=== PATIENT | male | born 1990 | race Hispanic/Latino ===

== ENCOUNTER 2023-04-19 16:04 | Emergency (ER) | payer SELFPAY ==
--- NOTE | ~2023-04-19 | XR_ITS ---
EXAMINATION: XR chest 2V DATE: 04/19/2023 16:47 INDICATION: Cough. Chest pain. TECHNIQUE: Frontal and lateral views of the chest were obtained. COMPARISON: None. FINDINGS: There is no pneumonia, pleural effusion, or pneumothorax. The heart size is normal. IMPRESSION: 1. No acute cardiopulmonary disease. Reviewed, dictated and finalized at location E. [facility] [place]
[2023-04-19 16:18] VITALS: BP 143/69; PULSE 71; RESP 16; TEMP 37; O2SAT 98
--- NOTE | 2023-04-19 16:38 | ED.GENADULT ---
HPI - General Adult General Chief complaint: Upper Respiratory Infection Stated complaint: cough, chest wall pain Time Seen by Provider: 04/19/23 16:34 Source: patient and RN notes reviewed Mode of arrival: ambulatory Limitations: no limitations History of Present Illness HPI narrative: Patient presents today complaining of one-week history of cough and right lower anterior chest wall pain. Denies shortness of breath. States 3 weeks ago he had some sore throat, congestion, rhinorrhea symptoms, but these have since resolved. Currently rates his pain 8/10 and has tried some NyQuil with little relief. No history of asthma or COPD. States he occasionally smokes. Related Data Allergies Allergy/AdvReac Type Severity Reaction Status Date / Time No Known Allergies Allergy Verified 04/19/23 16:26 Review of Systems Review of Systems: CONSTITUTIONAL: Denies body aches, fever, chills, or sweats. EYES: Denies visual changes, redness, or discharge. ENT: Denies rhinorrhea, congestion, sore throat, or otalgia. CARDIOVASCULAR: Denies chest pain, palpitations, or edema. RESPIRATORY: Denies dyspnea.+ cough, chest wall pain GASTROINTESTINAL: Denies abdominal pain, nausea, vomiting, or diarrhea. GENITOURINARY: Denies dysuria or hematuria. SKIN: Denies rash, itching, or wounds. MUSCULOSKELETAL: Denies back pain, joint pain, or myalgia. NEUROLOGIC: Denies headache, numbness, tingling, or weakness. PSYCH: Denies depression or anxiety. PMFSH Comments At time of signature, I have reviewed and agree with nursing past medical, surgical, social and family history unless otherwise noted. Please see nursing chart for further information. There is no relevant family history pertinent to the presenting complaint Exam Narrative: GENERAL: Well-appearing, well-nourished, and in no acute distress. HEAD: Normocephalic, atraumatic. EYES: EOMI. No redness or drainage. Conjunctivae normal. ENT: Mucous membranes pink and moist. Nares clear. No rhinorrhea. TMs normal bilaterally. Throat normal. Uvula midline. NECK: Normal AROM. Supple. No lymphadenopathy. CHEST: No respiratory distress. Slight crackle in right lower lobe, otherwise clear. Chest is nontender. HEART: Regular rate and rhythm. No murmur appreciated. EXTREMITIES: Normal range of motion. No edema. SKIN: Warm, dry, no rash. Capillary refill normal. Normal skin turgor. NEURO: No focal deficits. Alert and oriented x3. Gait steady. PSYCH: Normal affect. No signs of depression or anxiety. Course Course Level of Care: Express Care Visit Vital Signs Vital signs: Vital Signs Temperature 98.6 F 04/19/23 16:18 Pulse Rate 71 04/19/23 16:18 Respiratory Rate 16 04/19/23 16:18 Blood Pressure 143/69 H 04/19/23 16:18 Pulse Oximetry 98 04/19/23 16:18 Temperature 98.6 F 04/19/23 16:18 Pulse Rate 71 04/19/23 16:18 Respiratory Rate 16 04/19/23 16:18 Blood Pressure 143/69 H 04/19/23 16:18 Pulse Oximetry 98 04/19/23 16:18 Reviewed Medical Decision Making MDM Narrative Medical decision making narrative: Chest x-ray negative for pneumonia. Symptoms likely due to post infectious bronchitis. Prescription for prednisone sent to pharmacy. Anticipatory guidance given. Differential Diagnosis Differential Diagnosis: Bronchitis, pneumonia Vital Signs Vital Signs: Vital Signs Temperature 98.6 F 04/19/23 16:18 Pulse Rate 71 04/19/23 16:18 Respiratory Rate 16 04/19/23 16:18 Blood Pressure 143/69 H 04/19/23 16:18 Pulse Oximetry 98 04/19/23 16:18 Temperature 98.6 F 04/19/23 16:18 Pulse Rate 71 04/19/23 16:18 Respiratory Rate 16 04/19/23 16:18 Blood Pressure 143/69 H 04/19/23 16:18 Pulse Oximetry 98 04/19/23 16:18 Imaging Data Radiologist's impression: ITS Impressions Chest X-Ray 04/19/23 16:49 IMPRESSION: 1. No acute cardiopulmonary disease. Critical Care Time Critical Care Time C
== END 2023-04-19 17:01 | disposition home or self-care (01) ==
PROVIDERS: Emergency Provider Nurse Practitioner
DX: J40 Bronchitis, not specified as acute or chronic (principal); R07.89 Other chest pain; Z72.0 Tobacco use
CPT/HCPCS: 71046; 99203; G0463

== ENCOUNTER 2024-09-29 17:31 | Emergency (ER) | payer OTHER, SELFPAY ==
[2024-09-29 17:43] VITALS: BP 151/94; PULSE 74; RESP 16; TEMP 36.6; O2SAT 100
--- NOTE | 2024-09-29 18:06 | ED.GENADULT ---
HPI - General Adult General Chief complaint: Trauma Stated complaint: work injury Source: patient Mode of arrival: ambulatory Limitations: no limitations History of Present Illness HPI narrative: Patient presents for evaluation of a head injury. 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 He fell over the lawnmower and hit his head against the ground. The event occurred approximately 1430 today. He indicates he had a brief loss of consciousness. He is not anticoagulated. He has not vomited since the episode. He now reports a frontal and bilateral temporal headache that he rates 5/10 in severity. He feels slightly confused and states he was unable to tell his boss where he was immediately following the event. He also reports some pain in the side of his neck bilaterally and an abrasion to the right anterior pelvis. Related Data Allergies Allergy/AdvReac Type Severity Reaction Status Date / Time No Known Allergies Allergy Verified 09/29/24 17:37 Review of Systems Review of Systems: CONSTITUTIONAL: Denies fever, chills, or sweats. EYES: Denies visual changes, redness, or discharge. ENT: Denies rhinorrhea, congestion, sore throat, or otalgia. CARDIOVASCULAR: Denies chest pain, palpitations, or edema. RESPIRATORY: Denies cough or dyspnea. GASTROINTESTINAL: Denies abdominal pain, nausea, vomiting, or diarrhea. GENITOURINARY: Denies dysuria or hematuria. SKIN: reports abrasion to the right anterior pelvis. Denies rash or itching. MUSCULOSKELETAL: Reports pain in the lateral aspect of his neck bilaterally NEUROLOGIC: Reports headache and confusion. Denies numbness PSYCHIATRIC: Denies anxiety or depression. FOR[facility]LY [facility], [facility] Past Medical History Medical History No pertinent past medical history Surgical History Surgical History Surgical history unknown Family History Family History Mother Family history non-contributory Social History Social History Alcohol intake: current Alcohol use details: 1 day per week Substance use: never Living arrangements: with family Gender identity (if verbalized by the patient): Male Sexual Orientation (if Verbalized by the Patient): Straight or Heterosexual Spiritual care concerns: No Exam Narrative: GENERAL: Well-appearing, well-nourished, and in no acute distress. HEAD: Normocephalic, atraumatic. EYES: PERRLA and EOMI. ENT: Nares clear, no rhinorrhea or epistaxis. Mucous membranes moist. Oropharynx without tonsillar hypertrophy exudate or other lesions. Bilateral TMs pearly doll nonbulging NECK: Supple. No adenopathy or masses. No carotid bruits or JVD. no tenderness in the posterior aspect of the neck or in the lateral aspect of the neck CHEST: Clear to auscultation. No respiratory distress. No wheezes rales or rhonchi HEART: Regular rate and rhythm. No murmur heard. Normal peripheral pulses. ABDOMEN: Soft, nontender, nondistended, normal active bowel sounds. EXTREMITIES: Normal range of motion. No edema. SKIN: there is a superficial abrasion noted to the right anterior pelvis. Warm, dry, no rash. NEURO: No focal deficits. Alert and oriented x3. PSYCH: Normal mood and affect. Course Course Emergency Course: This is a 34-year-old male who presented for evaluation of a head injury that occurred at 2:30 p.m. today. He is neurologically intact on exam but verbalizes confusion. Based upon positive loss of consciousness was sent to the ER for further evaluation. [facility] is his facility of choice. I contacted [facility] Emergency Department and spoke with Linda Anthony, who indicates that Dr Khan will accept pt to the Dept there. Pt transported via private vehicle per family. Level of Care: Express Care Visit Vital Signs Vital signs: Vital Signs Temperature 36.6 C 09/29/24 17:43 Pulse Rate 74 09/29/24 17:43 Respiratory Rate 16 09/29/24 17:43 Blood Pressure 151/94 H 09/29/24 17:43 Pulse Oximetry 100 09/29/24 17:43 Oxygen Delivery Room Air 09/29/24 17:43 Temperature 36.6 C 09/29/24 17:43 Pulse Rate 74 09/29/24 17:43 Respiratory Rate 16 09/29/24 17:43 Blood Pressure 151/94 H 09/29/24 17:43 Pulse Oximetry 100 09/29/24 17:43 Oxygen Delivery Room Air 09/29/24 17:43 Medical Decision Making Vital Signs Vital Signs: Vital Signs Temperature 36.6 C 09/29/24 17:43 Pulse Rate 74 09/29/24 17:43 Respiratory Rate 16 09/29/24 17:43 Blood Pressure 151/94 H 09/29/24 17:43 Pulse Oximetry 100 09/29/24 17:43 Oxygen Delivery Room Air 09/29/24 17:43 Temperature 36.6 C 09/29/24 17:43 Pulse Rate 74 09/29/24 17:43 Respiratory Rate 16 09/29/24 17:43 Blood Pressure 151/94 H 09/29/24 17:43 Pulse Oximetry 100 09/29/24 17:43 Oxygen Delivery Room Air 09/29/24 17:43 Discharge Plan Discharge Clinical Impression: Head injury, Loss of consciousness, Abrasion of skin of pelvis Patient Disposition: Acute Care Hospital Condition: Stable Patient Language: Portuguese Follow-up/Referrals: PHYSICIAN,CYBER WORKFORCE DEVELOPER AND MANAGER [Primary Care Provider] - Time of Disposition: 18:06
== END 2024-09-29 18:00 | disposition short-term general hospital (02) ==
PROVIDERS: Emergency Provider Nurse Practitioner
DX: S06.9X9A Unspecified intracranial injury with loss of consciousness of unspecified duration, initial encounter (principal); S30.810A Abrasion of lower back and pelvis, initial encounter; V84.0XXA Driver of special agricultural vehicle injured in traffic accident, initial encounter; Y99.0 Civilian activity done for income or pay
CPT/HCPCS: 99212; G0463

== ENCOUNTER 2024-09-29 18:25 | Emergency (ER) | payer OTHER, SELFPAY ==
--- NOTE | ~2024-09-29 | CT_ITS ---
History: Fall PROCEDURE: CT cervical spine without intravenous contrast. COMPARISON: None TECHNIQUE: Multiple contiguous axial images of the cervical spine were performed without the administration of i ntravenous contrast. DLP: 600 mGy-cm FINDINGS: Straightening of the normal curvature of the cervical spine is identified, likely muscular in origin. No acute fractures are present. The bilateral lung apices are unremarkable. No soft tissue abnormality is appreciated. The airway is patent. Impression: Straightening of the normal curvature of the cervical spine, likely muscular in origin. No acute fracture. Reviewed, dictated and finalized at location A. Impression: Straightening of the normal curvature of the cervical spine, likely muscular in origin. No acute fracture.
--- NOTE | ~2024-09-29 | XR_ITS ---
HISTORY: pain and swelling to dorsum of hand after a fall COMPARISON: None TECHNIQUE: 3 views of the left hand were performed. FINDINGS: No acute fracture is identified. The joint spaces are preserved. The carpal arcs are intact. Mild radiocarpal joint space narrowing with sclerosis of the distal radius is present. Bone mineralization is age-appropriate. No radiopaque foreign body is identified. IMPRESSION: No acute fracture or dislocation within the left hand, as detailed above. Reviewed, dictated and finalized at location A.
--- NOTE | ~2024-09-29 | XR_ITS ---
CHEST RADIOGRAPH, PA AND LATERAL CLINICAL HISTORY: chest soreness after fall . COMPARISON: 04/19/2023 TECHNIQUE: PA and lateral views of the chest. FINDINGS The cardiomediastinal silhouette is unremarkable. The lungs are clear. IMPRESSION: No focal infiltrate or effusion. If clinical suspicion persists, cross-sectional imaging (noncontrast enhanced CT examination of the c hest) is suggested for further evaluation. Reviewed, dictated and finalized at location A. IMPRESSION: No focal infiltrate or effusion. If clinical suspicion persists, cross-sectional imaging (noncontrast enhanced C T examination of the chest) is suggested for further evaluation.
--- NOTE | ~2024-09-29 | CT_ITS ---
History: Fall PROCEDURE: CT head without contrast. COMPARISON: None TECHNIQUE: Axial imaging of the head performed from the skull base to the vertex without IV contrast. Sagittal a nd coronal reformations obtained. DLP: 681 mGy-cm FINDINGS: The ventricles are normal in size, shape and position. There is no mass, mass effect or midline shift. There is no abnormal extra-axial fluid collection or intracranial hemorrhage. Visualized paranasal sinuses are clear. The mastoid air cells are well aerated. No acute displaced fractures within the overlying cranium. Impression: No acute intracranial hemorrhage or suspicious mass effect. Reviewed, dictated and finalized at location A. Impression: No acute intracranial hemorrhage or suspicious mass effect.
[2024-09-29 18:27] VITALS: BP 137/80; PULSE 89; RESP 20; TEMP 36.7; O2SAT 98
[2024-09-29 18:51] VITALS: BP 145/87; PULSE 73; RESP 17; TEMP 36.7; O2SAT 98
[2024-09-29 18:58] VITALS: BP 145/87; PULSE 92; RESP 17; O2SAT 97
[2024-09-29 19:28] VITALS: BP 155/94; PULSE 75; RESP 18; TEMP 37.1; O2SAT 100
--- NOTE | 2024-09-29 20:21 | ED_ITS ---
HPI - Head Injury General Chief complaint: Head Injury Stated complaint: head injury, +LOC, -thinner Time Seen by Provider: 09/29/24 19:40 History of Present Illness HPI Narrative: 34-year-old male presents to the emergency department for a head injury. Patient states he was mowing the lawn numbness in a lawnmower when he hit a drain in the lawn causing him to flip over the top of the lawnmower. He states he out stretches left hand in attempt to protect his head but injured his left hand is now having pain and swelling to the dorsum of the left hand. He does not recall if the hit his head but believes he may have lost consciousness for couple of seconds. He is not on anticoagulants. He is reporting a headache, pain to the left hand and soreness to his chest wall. He is also reporting a superficial abrasion to the right hip. Last Tdap unknown. Denies other injuries. Related Data Allergies Allergy/AdvReac Type Severity Reaction Status Date / Time No Known Allergies Allergy Verified 09/29/24 18:26 Review of Systems Review of Systems: All systems reviewed & are unremarkable except as noted in HPI and below PMFSH Past Medical History Medical History No pertinent past medical history Surgical History Surgical History Surgical history unknown Family History Family History Mother Family history non-contributory Social History Social History Alcohol intake: current Alcohol use details: 1 day per week Substance use: never Living arrangements: with family Gender identity (if verbalized by the patient): Male Sexual Orientation (if Verbalized by the Patient): Straight or Heterosexual Spiritual care concerns: No Exam Narrative: GENERAL: Well-appearing, well-nourished, and in no acute distress. HEAD: Normocephalic, atraumatic. EYES: PERRLA and EOMI. ENT: Nares clear, no rhinorrhea or epistaxis. Mucous membranes moist. NECK: No midline cervical spinous tenderness, crepitus, step-offs or deformities BACK: No midline thoracolumbar spinous tenderness, crepitus, step-offs or deformities CHEST: Clear to auscultation. No respiratory distress. No significant tenderness to chest wall or ribs HEART: Regular rate and rhythm. No murmur heard. Normal peripheral pulses. ABDOMEN: Soft, nontender, nondistended, normal active bowel sounds. EXTREMITIES: LUE: Tenderness and edema to the dorsum of the 2nd and 3rd metacarpal. Full ROM of all digits. Radial, median and ulnar nerves are intact. Cap refill less than 2. Sensation intact throughout. No tenderness to wrist or anatomical snuffbox SKIN: Superficial abrasion to the right hip with no active bleeding, deep structures or foreign bodies visualized NEURO: No focal deficits. Alert and oriented x4. Cranial nerves 2-12 are intact. Strength 5/5 BUE and BLE. Sensation intact throughout Course Vital Signs Vital signs: Vital Signs Temperature 98.0 F 09/29/24 18:27 Pulse Rate 89 09/29/24 18:27 Respiratory Rate 20 09/29/24 18:27 Blood Pressure 137/80 09/29/24 18:27 Pulse Oximetry 98 09/29/24 18:27 Oxygen Delivery Room Air 09/29/24 18:27 Temperature 98.7 F 09/29/24 19:28 Pulse Rate 75 09/29/24 19:28 Respiratory Rate 18 09/29/24 19:28 Blood Pressure 155/94 H 09/29/24 19:28 Pulse Oximetry 100 09/29/24 19:28 Oxygen Delivery Room Air 09/29/24 18:51 MDM - Head Injury MDM Narrative Medical decision making narrative: 34-year-old male presents to the emergency department for a head injury. Patient is not anticoagulated. He believes he may have lost consciousness for few seconds. See HPI for further history. Vitals are stable. Patient is neurovascularly intact. Head to toe exam is significant for the above. CT brain shows no acute intracranial findings. CT cervical spine shows no acute cervical fractures or traumatic malalignment. Chest x-ray shows no focal infiltrate or effusion. X-ray of the left hand shows no acute fracture or dislocation within the left hand. Patient updated on results. Tdap updated. Received Tylenol for symptoms with significant improvement. On re-evaluation he is resting comfortably in exam bed remains neurovascularly intact. Suspect possible concussion given presentation. Discussed cognitive rest and supportive care. I did consider obtaining a CT chest to evaluate for occult rib fracture however patient politely declined. He has no reproducible pain distress walking and states he just feels ?sore. Patient advised to follow-up closely with PCP and given strict ED return precautions. He is agreeable with the plan and verbalized understanding. Discharged in stable condition. Discharge Plan Discharge Clinical Impression: Head injury Qualifiers: Encounter type: initial encounter Qualified Code(s): S09.90XA - Unspecified injury of head, initial encounter Hand sprain Qualifiers: Encounter type: initial encounter Laterality: left Qualified Code(s): S63.92XA - Sprain of unspecified part of left wrist and hand, initial encounter Patient Disposition: Home Condition: Stable Instructions: Antibiotic Form, Concussion (ED), Head Injury (ED) Additional Instructions: Please take Tylenol and ibuprofen as needed for headache and pain. Please perf orm cognitive rest as discussed. Follow-up closely with the primary care provider you referred to. Return to the emergency department if you develop confusion, vision changes, focal numbness or weakness, loss of consciousness, seizure-like activity, or other concerning symptoms. Patient Language: Eritrean Prescriptions: New cyclobenzaprine 10 mg tablet 10 mg PO TID PRN (Reason: muscle spasm) Qty: 14 0RF acetaminophen 500 mg capsule 500 mg PO Q6H PRN (Reason: pain) Qty: 14 0RF ibuprofen 800 mg tablet 800 mg PO TID PRN (Reason: pain) Qty: 20 0RF Follow-up/Referrals: PHYSICIAN,NONPROFIT MANAGER [Primary Care Provider] - Hermelindo Flores MD [Physician] -
[2024-09-29] MEDS: ACETAMINOPHEN 500 MG TABLET 1000 MG PO (20:22)
[2024-09-29] MEDS: TETANUS,DIPHTHERIA,AC PERTUSSIS ADULT (0.5 ML) BOOSTRIX IM (20:23)
[2024-09-29 23:54] VITALS: BP 130/82; PULSE 76; RESP 16; TEMP 36.6; O2SAT 93
== END 2024-09-29 23:55 | disposition home or self-care (01) ==
PROVIDERS: Emergency Provider Physician Assistant
DX: S09.90XA Unspecified injury of head, initial encounter (principal); S63.92XA Sprain of unspecified part of left wrist and hand, initial encounter; Z23 Encounter for immunization; W28.XXXA Contact with powered lawn mower, initial encounter
CPT/HCPCS: 70450; 71046; 72125; 73130; 90471; 90715; 99284; A9270